=== PATIENT | male | born 1955 ===

== ENCOUNTER 2018-11-23 12:08 | Outpatient (CLI) | payer MEDICARE, BC ==
--- NOTE | 2018-11-23 13:17 | Diagnostic Imaging Report ---
Indication: Cough Comparison: None 2 views of the chest obtained. Findings: There is basilar atelectasis demonstrated mild in degree. Borderline cardiomegaly demonstrated. Aorta is mildly ectatic. Bones appear osteopenic. IMPRESSION: Mild basal atelectasis
== END 2018-11-23 14:08 | disposition home or self-care (01) ==
LOC: RAD 12:08
DX: R05 Cough (principal); M85.80 Other specified disorders of bone density and structure, unspecified site; J98.11 Atelectasis
CPT/HCPCS: 71046